=== PATIENT | female | born 1990 | race Caucasian/White ===

== ENCOUNTER 2016-10-30 16:05 | Emergency (ER) | payer OTHER ==
[2016-10-30] MEDS ORDERED: NS 0.9% 1000 ML* 1,000 ML IV ONE (17:01)
[2016-10-30 17:24] LABS: Hematocrit 28 % (35-47); Hemoglobin 8.9 g/dl (12.0-16.0); Mean Corpuscular HGB Conc 32 g/dl (31-36); Mean Corpuscular Hemoglobin 20 pg (27-31); Mean Corpuscular Volume 63 fL (80-97); Mean Platelet Volume 8 um3 (7.4-10.4); Red Blood Count 4.45 10^6/ul (4.0-5.4); Red Cell Distribution Width 16 % (10.5-15); White Blood Count 7.1 10^3/ul (3.5-10.8)
[2016-10-30 17:26] LABS: Add Diff/Slide Review? Slide Review Added; Comments Flag Yes
[2016-10-30 17:35] LABS: Urine Bacteria Absent (Absent); Urine Bilirubin Negative (Negative); Urine Glucose Negative (Negative); Urine Nitrite Negative (Negative)
--- NOTE | 2016-10-30 17:39 | RAD ---
Indication: Bleeding with vaginal delivery. Real-time sonography of the pelvis was performed utilizing transvesical technique. The uterus measures 12.5 x 5.7 x 3.7 cm. Endometrial echo measures 18 mm. The uterus appears to be enlarged consistent with post state. Right ovary measures 2.4 x 1.0 x 3.9 cm. Left ovary measures 2.0 x 1.3 x 2.8 cm. IMPRESSION: Thickened endometrium may be due to fluid and hemorrhage in the endometrial cavity.
[2016-10-30 17:44] LABS: Hypochromasia 1+; Microcytosis 2+
[2016-10-30 17:45] LABS: Add Path Review? YES; Albumin 3.7 g/dL (3.2-5.2); BUN/Creatinine Ratio 20.8 (8-20); Basophilic Stippling 1+; C Reactive Protein 2.7 mg/L (< 5.00); EGFR Non-African American 96.5 (>60); Globulin 2.6 g/dL (2-4); Polychromasia 1+; Potassium 3.7 mmol/L (3.5-5.0); Target Cells 1+; Tear Drop Cells 1+; Total Bilirubin 0.5 mg/dL (0.2-1.0); Total Protein 6.3 g/dL (6.4-8.9)
--- NOTE | 2016-10-30 19:36 | ED ---
Namita Alaniz Emily, scribed for Jerry Del Rio MD on 10/30/16 at 1708 . GI/ HPI - HPI Summary HPI Summary: This patient is a 26 year old F presenting to [facility] accompanied by with a chief complaint of vaginal bleeding that began today. Pt felt lightheadedness and gushing of blood once standing up from car. Patient reports abd pain (3/ 10 in severity). Patient denies CP and SOB. Pt denies having similar bleeding after giving . Pt gave 8 days ago to her 2nd child. Child was born after 41 weeks 2 days (9 days overdue) in a vaginal . Pt reports passing a vaginal blood clot on 10/24/2016. - History of Current Complaint Chief Complaint: EDVaginalBleeding Time Seen by Provider: 10/30/16 16:49 Stated Complaint: BLOOD CLOTS Hx Obtained From: Patient Onset/Duration: Started Hours Ago, Still Present Timing: Constant, Lasting Hours Severity: Moderate Current Severity: Moderate Pain Intensity: 3 Associated Signs and Symptoms: Positive: Other: - Patient reports abd pain (3/ 10 in severity). Patient denies CP and SOB - Allergy/Home Medications Allergies/Adverse Reactions: Allergies Allergy/AdvReac Type Severity Reaction Status Date / Time No Known Allergies Allergy Verified 10/30/16 16:13 PMH/Surg Hx/FS Hx/Imm Hx Sensory History: Denies: Hx Legally Blind EENT History: Denies: Hx Deafness Infectious Disease History: No Infectious Disease History: Denies: Traveled Outside the [place] in Last 30 Days - Family History Known Family History: Negative: Cardiac Disease, Diabetes - Social History Lives: With Family Alcohol Use: None Substance Use Type: Reports: None Smoking Status (MU): Never Smoked Tobacco Review of Systems Negative: Chest Pain Negative: Shortness Of Breath Positive: Abdominal Pain Positive: other - Vaginal bleeding All Other Systems Reviewed And Are Negative: Yes Physical Exam Triage Information Reviewed: Yes Vital Signs On Initial Exam: Initial Vitals Temp Pulse Resp BP Pulse Ox 97.2 F 83 17 134/85 100 10/30/16 16:08 10/30/16 16:08 10/30/16 16:08 10/30/16 16:08 10/30/16 16:08 Vital Signs Reviewed: Yes Appearance: Positive: Well-Appearing, No Pain Distress Skin: Positive: Warm, Skin Color Reflects Adequate Perfusion, Dry Head/Face: Positive: Normal Head/Face Inspection Eyes: Positive: EOMI, HARSHAD ENT: Positive: Normal ENT inspection Neck: Positive: Supple, Nontender Respiratory/Lung Sounds: Positive: Clear to Auscultation, Breath Sounds Present Cardiovascular: Positive: RRR Abdomen Description: Positive: Nontender, Soft Bowel Sounds: Positive: Present Musculoskeletal: Positive: Normal, Strength/ROM Intact Neurological: Positive: Normal, Sensory/Motor Intact, Alert, Oriented to Person Place, Time Psychiatric: Positive: Affect/Mood Appropriate - [place] Coma Scale Coma Scale Total: 15 Diagnostics - Vital Signs Vital Signs Temp Pulse Resp BP Pulse Ox 10/30/16 16:08 97.2 F 83 17 134/85 100 - Laboratory Lab Results: Lab Results 10/30/16 10/30/16 10/30/16 Range/Units 17:10 17:10 17:10 WBC 7.1 (3.5-10.8) 10^3/ul RBC 4.45 (4.0-5.4) 10^6/ul Hgb 8.9 L (12.0-16.0) g/dl Hct 28 L (35-47) % MCV 63 L (80-97) fL MCH 20 L (27-31) pg MCHC 32 (31-36) g/dl RDW 16 H (10.5-15) % Plt Count 347 (150-450) 10^3/ul MPV 8 (7.4-10.4) um3 Neut % (Auto) 67.4 (38-83) % Lymph % (Auto) 24.8 L (25-47) % [place] % (Auto) 5.3 (1-9) % Eos % (Auto) 1.3 (0-6) % Baso % (Auto) 1.2 (0-2) % Absolute Neuts (auto) 4.8 (1.5-7.7) 10^3/ul Absolute Lymphs (auto) 1.8 (1.0-4.8) 10^3/ul Absolute Monos (auto) 0.4 (0-0.8) 10^3/ul Absolute Eos (auto) 0.1 (0-0.6) 10^3/ul Absolute Basos (auto) 0.1 (0-0.2) 10^3/ul Absolute Nucleated RBC 0 10^3/ul Nucleated RBC % 0.1 Normal RBC Morphology Not Reportable Polychromasia 1+ Hypochromasia 1+ Basophilic Stippling 1+ Microcytosis 2+ Target Cells 1+ Tear Drop Cells 1+ Elliptocytes 1+ Hem Pathologist Commnt Pending INR (Anticoag Therapy) 0.85 L (0.89-1.11) APTT 25.9 L (26.0-36.3) seconds Sodium 140 (133-145) mmol/L Potassium 3.7 (3.5-5.0) mmol/L Chloride 108 (101-111) mmol/L Carbon Dioxide 25 (22-32) mmol/L Anion Gap 7 (2-11) mmol/L BUN 15 (6-24) mg/dL Creatinine 0.72 (0.51-0.95) mg/dL Est GFR ( Amer) 124.0 (>60) Est GFR (Non-Af Amer) 96.5 (>60) BUN/Creatinine Ratio 20.8 H (8-20) Glucose 101 H (70-100) mg/dL Lactic Acid (0.5-2.0) mmol/L Calcium 9.0 (8.6-10.3) mg/dL Total Bilirubin 0.50 (0.2-1.0) mg/dL AST 27 (13-39) U/L ALT 65 H (7-52) U/L Alkaline Phosphatase 67 (34-104) U/L C-Reactive Protein 2.70 (< 5.00) mg/L Total Protein 6.3 L (6.4-8.9) g/dL Albumin 3.7 (3.2-5.2) g/dL Globulin 2.6 (2-4) g/dL Albumin/Globulin Ratio 1.4 (1-3) Beta HCG, Quant 277.95 mIU/mL Urine Color Urine Appearance Urine pH (5-9) Ur Specific [place] (1.010-1.030) Urine Protein (Negative) Urine Ketones (Negative) Urine Blood (Negative) Urine Nitrate (Negative) Urine Bilirubin (Negative) Urine Urobilinogen (Negative) Ur Leukocyte Esterase (Negative) Urine WBC (Auto) (Absent) Urine RBC (Auto) (Absent) Urine Bacteria (Absent) Urine Glucose (Negative) 09/16/17 09/16/17 Range/Units 17:10 17:10 WBC (3.5-10.8) 10^3/ul RBC (4.0-5.4) 10^6/ul Hgb (12.0-16.0) g/dl Hct (35-47) % MCV (80-97) fL MCH (27-31) pg MCHC (31-36) g/dl RDW (10.5-15) % Plt Count (150-450) 10^3/ul MPV (7.4-10.4) um3 Neut % (Auto) (38-83) % Lymph % (Auto) (25-47) % [place] % (Auto) (1-9) % Eos % (Auto) (0-6) % Baso % (Auto) (0-2) % Absolute Neuts (auto) (1.5-7.7) 10^3/ul Absolute Lymphs (auto) (1.0-4.8) 10^3/ul Absolute Monos (auto) (0-0.8) 10^3/ul Absolute Eos (auto) (0-0.6) 10^3/ul Absolute Basos (auto) (0-0.2) 10^3/ul Absolute Nucleated RBC 10^3/ul Nucleated RBC % Normal RBC Morphology Polychromasia Hypochromasia Basophilic Stippling Microcytosis Target Cells Tear Drop Cells Elliptocytes Hem Pathologist Commnt INR (Anticoag Therapy) (0.89-1.11) APTT (26.0-36.3) seconds Sodium (133-145) mmol/L Potassium (3.5-5.0) mmol/L Chloride (101-111) mmol/L Carbon Dioxide (22-32) mmol/L Anion Gap (2-11) mmol/L BUN (6-24) mg/dL Creatinine (0.51-0.95) mg/dL Est GFR ( Amer) (>60) Est GFR (Non-Af Amer) (>60) BUN/Creatinine Ratio (8-20) Glucose (70-100) mg/dL Lactic Acid 1.0 (0.5-2.0) mmol/L Calcium (8.6-10.3) mg/dL Total Bilirubin (0.2-1.0) mg/dL AST (13-39) U/L ALT (7-52) U/L Alkaline Phosphatase (34-104) U/L C-Reactive Protein (< 5.00) mg/L Total Protein (6.4-8.9) g/dL Albumin (3.2-5.2) g/dL Globulin (2-4) g/dL Albumin/Globulin Ratio (1-3) Beta HCG, Quant mIU/mL Urine Color Yellow Urine Appearance Clear Urine pH 6.0 (5-9) Ur Specific [place] 1.010 (1.010-1.030) Urine Protein Negative (Negative) Urine Ketones Negative (Negative) Urine Blood 2+ H (Negative) Urine Nitrate Negative (Negative) Urine Bilirubin Negative (Negative) Urine Urobilinogen Negative (Negative) Ur Leukocyte Esterase Negative (Negative) Urine WBC (Auto) Trace(0-5/hpf) (Absent) Urine RBC (Auto) 2+(6-10/hpf) H (Absent) Urine Bacteria Absent (Absent) Urine Glucose Negative (Negative) Result Diagrams: 10/30/16 17:10 10/30/16 17:10 Lab Statement: Any lab studies that have been ordered have been reviewed, and results considered in the medical decision making process. - Additional Comments Diagnostic Additional Comments: A pelvis US read by radiologist reveals thickened endometrium may be due to fluid and hemorrhage in the endometrial cavity. ED physician has reviewed this radiology report and agrees. GIGU Course/Dx - Course Course Of Treatment: BLEEDING DECREASED IN ED. DISCUSSED RESULTS WITH PATIENT/ . DISCUSSED WITH OBGYN, DR LY. VSS, DECREASED BLEEDING, PATIENT WILL F/U WITH HER OBGYN; RETURN TO THE ED IF WORSE OR QUESTIONS/CONCERNS. NO CRITICAL CARE TIME. - Diagnoses Provider Diagnoses: bleeding - Physician Notifications Discussed Care Of Patient With: Ly Ly Time Discussed With Above Provider: 19:19 Instructed by Provider To: Other - Consult with Dr. Ly (Senior Design Engineer) discussed patient's care. She recommends discharge. Discharge - Discharge Plan Condition: Stable Disposition: HOME Patient Education Materials: Bleeding (ED) Referrals: Non Staff,Doctor [Primary Care Provider] - Ly Ly MD [Medical Doctor] - [facility] [Provider Group] Additional Instructions: FOLLOW UP WITH YOUR OBGYN. RETURN TO THE EMERGENCY DEPARTMENT FOR ANY WORSENING OF YOUR CONDITION; EXCESSIVE BLEEDING, YOU FEEL LIGHTHEADED, YOU FEEL ILL, FEVER OR QUESTIONS OR CONCERNS. The documentation as recorded by the Namita wu Emily accurately reflects the service I personally performed and the decisions made by me, Jerry Del Rio MD.
[2016-10-30 19:43] VITALS: BP 130/73
== END 2016-10-30 19:53 | disposition home or self-care (01) ==
LOC: ED 16:05
DX: O72.1 Other immediate postpartum hemorrhage (principal); R10.9 Unspecified abdominal pain
CPT/HCPCS: 36415; 76856; 80053; 81003; 81015; 83605; 84702; 85025; 85060; 85610; 85730; 86140; 99283

== ENCOUNTER 2017-12-06 19:50 | Emergency (ER) | payer OTHER ==
[2017-12-06 21:20] LABS: EGFR Non-African American 91.4 (>60)
[2017-12-06 21:22] LABS: ABS Basophils 0.1 10^3/ul (0-0.2); ABS Eosinophils 0.1 10^3/ul (0-0.6); ABS Monocytes 0.5 10^3/ul (0-0.8); ABS Neutrophils 4.2 10^3/ul (1.5-7.7); ABS Nucleated RBC 0 10^3/ul; Eosinophil % 1.7 % (0-6); Hematocrit 36 % (35-47); Hemoglobin 11.2 g/dl (12.0-16.0); Lymphocyte % 38.4 % (25-47); Mean Corpuscular HGB Conc 31 g/dl (31-36); Mean Corpuscular Hemoglobin 19 pg (27-31); Mean Corpuscular Volume 59 fL (80-97); Nucleated Red Blood Cells % 0.1; Platelet Count 308 10^3/ul (150-450); Red Blood Count 6.03 10^6/ul (4.00-5.40); Red Cell Distribution Width 15 % (10.5-15); White Blood Count 7.9 10^3/ul (3.5-10.8)
[2017-12-06 21:58] LABS: Urine Appearance Clear; Urine Blood 1+ (Negative); Urine Color Straw; Urine Ketones Negative (Negative); Urine Protein Negative (Negative); Urine Red Blood Cell Trace(0-2/hpf) (Absent); Urine Specific Gravity 1.005 (1.010-1.030); Urine Urobilinogen Negative (Negative); Urine White Blood Cell Absent (Absent)
[2017-12-06] MEDS ORDERED: NS 0.9% 1000 ML*IV.FLUID IV ONE (22:45)
[2017-12-07] MEDS ORDERED: Iohexol 300* (CONTRAST) 10 ML SDV IV ONE (00:10)
--- NOTE | 2017-12-07 01:20 | RAD ---
EXAM: CT Abdomen and Pelvis With Intravenous Contrast EXAM DATE/TIME: 12/07/2017 12:14 AM CLINICAL HISTORY: 27 years old, female; Pain; Abdominal pain; Epigastric; Prior surgery; Surgery date: 6+ months; Surgery type: RT inguinal SX; Patient HX: Lt kidney [facility] 2008; Additional info: Epigastric pain TECHNIQUE: Axial computed tomography images of the abdomen and pelvis with intravenous contrast. All CT scans at this facility use at least one of these dose optimization techniques: automated exposure control; mA and/or kV adjustment per patient size (includes targeted exams where dose is matched to clinical indication); or iterative reconstruction. CONTRAST: 72 ml of OMNI 300 administered intravenously. COMPARISON: PELVIC US PELVIC 10/30/2016 5:16 PM FINDINGS: Lower thorax: No acute findings. ABDOMEN: Liver: Normal. No mass. Gallbladder and bile ducts: Normal. No calcified stones. No ductal dilation. Pancreas: Normal. No ductal dilation. Spleen: Normal. No splenomegaly. Adrenals: Normal. No mass. 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 There is compensatory hypertrophy of the right kidney. Stomach and bowel: Normal. No obstruction. No mucosal thickening. Appendix: The appendix is unremarkable as seen best on axial image 44 of series 2. PELVIS: Bladder: Unremarkable as visualized. Reproductive: Unremarkable as visualized. ABDOMEN and PELVIS: Intraperitoneal space: There is trace free fluid in the pelvis, cannot exclude ovarian cyst rupture. Bones/joints: No acute fracture. No dislocation. Soft tissues: Unremarkable. Vasculature: Normal. No abdominal aortic aneurysm. Lymph nodes: Normal. No enlarged lymph nodes. IMPRESSION: 1. There is trace free fluid in the pelvis, cannot exclude ovarian cyst rupture. 2. No other acute CT pathology. To contact [facility] with a general question: Operations Center - [phone] For direct physician to physician contact: Physician Hotline - [phone] [facility] ([facility] Facility ID #[id number])
--- NOTE | 2017-12-07 01:22 | ED ---
GI/ HPI - HPI Summary HPI Summary: 27-year-old female presents with intermittent abdominal pain for the past couple months. She states she was treated for gastritis and H. pylori in august. She states since then she has had intermittently abd pain after she eats she gets this very sharp pain in her epigastric. it Lasts a couple hours.she admit to nausea but no vomiting. no diarrhea or constipation. She was on a course of omeprazole but can not continue due to having only one functioning kidney. She does not take ibuprofen daily. She does not drink Alcohol. Her dietitian told her to come in to evaluate for pancreatitis when has a pain flare. no previous abdominal surgeries. no fevers. - History of Current Complaint Chief Complaint: EDAbdPain Time Seen by Provider: 12/06/17 21:25 Stated Complaint: ABD PAIN Pain Intensity: 8 - Allergy/Home Medications Allergies/Adverse Reactions: Allergies Allergy/AdvReac Type Severity Reaction Status Date / Time No Known Allergies Allergy Verified 12/06/17 19:56 PMH/Surg Hx/FS Hx/Imm Hx Endocrine/Hematology History: Denies: Hx Diabetes Cardiovascular History: Denies: Hx Hypertension History: Denies: Hx Renal Disease Sensory History: Denies: Hx Legally Blind, Hx Deafness Opthamlomology History: Denies: Hx Legally Blind Infectious Disease History: No Infectious Disease History: Denies: Traveled Outside the [place] in Last 30 Days - Family History Known Family History: Negative: Cardiac Disease, Diabetes - Social History Alcohol Use: Occasionally Substance Use Type: Reports: None Smoking Status (MU): Former Smoker Review of Systems Negative: Fever Negative: Chest Pain Negative: Shortness Of Breath Positive: Abdominal Pain, Nausea. Negative: Vomiting, Diarrhea All Other Systems Reviewed And Are Negative: Yes Physical Exam Triage Information Reviewed: Yes Vital Signs On Initial Exam: Initial Vitals Temp Pulse Resp BP Pulse Ox 97.8 F 97 16 134/118 100 12/06/17 19:53 12/06/17 19:53 12/06/17 19:53 12/06/17 19:53 12/06/17 19:53 Vital Signs Reviewed: Yes Appearance: Positive: Well-Appearing Skin: Positive: Warm, Dry Head/Face: Positive: Normal Head/Face Inspection Eyes: Positive: Normal, Conjunctiva Clear ENT: Positive: Pharynx normal Respiratory/Lung Sounds: Positive: Clear to Auscultation, Breath Sounds Present Cardiovascular: Positive: Normal, RRR Abdomen Description: Positive: Soft, Other: - tenderness epigastric Bowel Sounds: Positive: Present Musculoskeletal: Positive: Normal Neurological: Positive: Normal Psychiatric: Positive: Normal Diagnostics - Vital Signs Vital Signs Temp Pulse Resp BP Pulse Ox 12/06/17 22:39 78 124/88 100 12/06/17 19:53 97.8 F 97 16 134/118 100 - Laboratory Lab Results: Lab Results 12/06/17 12/06/17 12/06/17 Range/Units 20:53 20:53 21:45 WBC 7.9 (3.5-10.8) 10^3/ul RBC 6.03 H (4.00-5.40) 10^6/ul Hgb 11.2 L (12.0-16.0) g/dl Hct 36 (35-47) % MCV 59 L (80-97) fL MCH 19 L (27-31) pg MCHC 31 (31-36) g/dl RDW 15 (10.5-15) % Plt Count 308 (150-450) 10^3/ul MPV 9.0 (7.4-10.4) um3 Neut % (Auto) 53.0 (38-83) % Lymph % (Auto) 38.4 (25-47) % [place] % (Auto) 6.0 (0-7) % Eos % (Auto) 1.7 (0-6) % Baso % (Auto) 0.9 (0-2) % Absolute Neuts (auto) 4.2 (1.5-7.7) 10^3/ul Absolute Lymphs (auto) 3.0 (1.0-4.8) 10^3/ul Absolute Monos (auto) 0.5 (0-0.8) 10^3/ul Absolute Eos (auto) 0.1 (0-0.6) 10^3/ul Absolute Basos (auto) 0.1 (0-0.2) 10^3/ul Absolute Nucleated RBC 0 10^3/ul Nucleated RBC % 0.1 Sodium 138 (135-145) mmol/L Potassium 4.1 (3.5-5.0) mmol/L Chloride 103 (101-111) mmol/L Carbon Dioxide 30 (22-32) mmol/L Anion Gap 5 (2-11) mmol/L BUN 16 (6-24) mg/dL Creatinine 0.75 (0.51-0.95) mg/dL Est GFR ( Amer) 110.5 (>60) Est GFR (Non-Af Amer) 91.4 (>60) BUN/Creatinine Ratio 21.3 H (8-20) Glucose 92 (70-100) mg/dL Calcium 10.3 (8.6-10.3) mg/dL Total Bilirubin 0.70 (0.2-1.0) mg/dL AST 16 (13-39) U/L ALT 17 (7-52) U/L Alkaline Phosphatase 50 (34-104) U/L C-Reactive Protein < 1.00 (<8.01) mg/L Total Protein 7.7 (6.4-8.9) g/dL Albumin 4.9 (3.2-5.2) g/dL Globulin 2.8 (2-4) g/dL Albumin/Globulin Ratio 1.8 (1-3) Amylase 52 (29-103) U/L Lipase 50 (11.0-82.0) U/L Beta HCG, Quant < 0.60 mIU/mL Urine Color Straw Urine Appearance Clear Urine pH 7.0 (5-9) Ur Specific [place] 1.005 L (1.010-1.030) Urine Protein Negative (Negative) Urine Ketones Negative (Negative) Urine Blood 1+ A (Negative) Urine Nitrate Negative (Negative) Urine Bilirubin Negative (Negative) Urine Urobilinogen Negative (Negative) Ur Leukocyte Esterase Negative (Negative) Urine WBC (Auto) Absent (Absent) Urine RBC (Auto) Trace(0-2/hpf) (Absent) Urine Bacteria Absent (Absent) Urine Glucose Negative (Negative) Result Diagrams: 12/06/17 20:53 12/06/17 20:53 Lab Statement: Any lab studies that have been ordered have been reviewed, and results considered in the medical decision making process. - CT abd CT Interpretation Completed By: Radiologist Summary of CT Findings: IMPRESSION: 1. There is trace free fluid in the pelvis , cannot exclude ovarian cyst. rupture. 2. No other acute CT pathology. GIGU Course/Dx - Course Course Of Treatment: 27-year-old female presents with intermittent abdominal pain for the past couple months. She states she was treated for gastritis and H. pylori in august. She states since then she has had intermittently abd pain after she eats she gets this very sharp pain in her epigastric. it Lasts a couple hours.she admit to nausea but no vomiting. no diarrhea or constipation. She was on a course of omeprazole but can not continue due to having only one functioning kidney. She does not take ibuprofen daily. She does not drink Alcohol. Her dietitian told her to come in to evaluate for pancreatitis when has a pain flare. On exam tenderness epigastric region. Lipase amylase normal. Discuss with patient and patient is requesting CT to evaluate for pain. CT normal. Discussed should follow back up with GI as have no reason for pain but is nothing surgical or infectious related. Patient understands agrees with plan. - Diagnoses Differential Diagnoses - Female: Esophagitis/Gastritis, Gastritis, Other - pacreatitis Provider Diagnoses: Abdominal pain Discharge - Sign-Out/Discharge Documenting (check all that apply): Patient Departure - Discharge Plan Condition: Good Disposition: HOME Patient Education Materials: Diet for Stomach Ulcers and Gastritis (ED) Referrals: Amira Talley MD [Primary Care Provider] - Additional Instructions: try maalox for symptoms Follow up with GI take tyenlol every 6 hours for pain Return to ED if develop any new or worsening symptoms - Billing Disposition and Condition Condition: GOOD Disposition: Home
[2017-12-07 01:29] VITALS: BP 112/79
== END 2017-12-07 01:33 | disposition home or self-care (01) ==
LOC: ED 19:50
DX: R10.13 Epigastric pain (principal); Z87.891 Personal history of nicotine dependence
CPT/HCPCS: 36415; 74177; 80053; 81003; 81015; 82150; 83690; 84702; 85025; 86140; 96360; 99283; Q9967

== ENCOUNTER 2018-08-17 15:53 | Emergency (ER) | payer OTHER ==
[2018-08-17 16:47] LABS: Urine Appearance Clear; Urine Bilirubin Negative (Negative); Urine Blood Negative (Negative); Urine Color Colorless; Urine Glucose Negative (Negative); Urine Ketones Negative (Negative); Urine Nitrite Negative (Negative); Urine Protein Negative (Negative); Urine Specific Gravity 1.001 (1.010-1.030); Urine Urobilinogen Negative (Negative)
[2018-08-17] MEDS ORDERED: NS 0.9% 1000 ML** 1,000 ML IV ONE (18:07)
[2018-08-17 18:31] LABS: ABS Basophils 0.1 10^3/ul (0-0.2); ABS Eosinophils 0.1 10^3/ul (0-0.6); ABS Lymphocytes 2.4 10^3/ul (1.0-4.8); ABS Monocytes 0.4 10^3/ul (0-0.8); Eosinophil % 1.5 %; Hematocrit 33 % (35-47); Hemoglobin 10.6 g/dL (12.0-16.0); Lymphocyte % 30.1 %; Mean Corpuscular HGB Conc 32 g/dL (31-36); Mean Corpuscular Hemoglobin 19 pg (27-31); Mean Corpuscular Volume 59 fL (80-97); Mean Platelet Volume 8.9 fL (7.4-10.4); Nucleated Red Blood Cells % 0.2; Platelet Count 309 10^3/uL (150-450); Red Blood Count 5.62 10^6 /uL (3.70-4.87); Red Cell Distribution Width 16 % (10-15); White Blood Count 8.1 10^3/uL (3.5-10.8)
[2018-08-17 18:43] LABS: ALT 14 U/L (7-52); AST 14 U/L (13-39); Albumin 4.8 g/dL (3.2-5.2); Albumin/Globulin Ratio 1.8 (1-3); Alkaline Phosphatase 46 U/L (34-104); Anion Gap 7 mmol/L (2-11); BUN/Creatinine Ratio 18.8 (8-20); Blood Urea Nitrogen 13 mg/dL (6-24); C Reactive Protein < 1.00 mg/L (<8.01); CO2 Carbon Dioxide 26 mmol/L (22-32); Calcium 9.8 mg/dL (8.6-10.3); Chloride 107 mmol/L (101-111); EGFR African American 120.9 (>60); EGFR Non-African American 99.9 (>60); Globulin 2.7 g/dL (2-4); Glucose 104 mg/dL (70-100); Potassium 3.9 mmol/L (3.5-5.0); Sodium 140 mmol/L (135-145); Total Protein 7.5 g/dL (6.4-8.9)
[2018-08-17 18:49] LABS: HCG Pregnancy < 0.60 mIU/mL
--- NOTE | 2018-08-17 19:18 | ED ---
Abdominal Pain/Female - HPI Summary HPI Summary: The patient is a 28 y/o F presenting to [facility] with a chief complaint of RLQ pain for the last three days. She reports that the pain has been persistent despite using Tylenol and Motrin to attempt to relieve the pain. The cramping pain is currently rated 4/10 in severity. She additionally c/o nausea without vomiting. She denies fever, diarrhea, and constipation. 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 No surgical hx. Former smoker, no EtOH, no substance use. - History of Current Complaint Chief Complaint: EDAbdPain Stated Complaint: ABD PAIN PER PT Time Seen by Provider: 08/17/18 17:59 Hx Obtained From: Patient Onset/Duration: Sudden Onset, Lasting Days - three, Still Present Timing: Days Severity Initially: Moderate Severity Currently: Moderate Pain Intensity: 4 Pain Scale Used: 0-10 Numeric Location: Discrete At: RLQ Radiates: No Character: Cramping Aggravating Factor(s): Nothing Alleviating Factor(s): Nothing - Tylenol and Motrin to no relief Associated Signs and Symptoms: Positive: Nausea. Negative: Fever, Constipation , Vomiting, Diarrhea Allergies/Adverse Reactions: Allergies Allergy/AdvReac Type Severity Reaction Status Date / Time No Known Allergies Allergy Verified 08/17/18 15:58 PMH/Surg Hx/FS Hx/Imm Hx Endocrine/Hematology History: Denies: Hx Diabetes Cardiovascular History: Denies: Hx Hypercholesterolemia, Hx Hypertension History: Denies: Hx Renal Disease Sensory History: Denies: Hx Legally Blind, Hx Deafness Opthamlomology History: Denies: Hx Legally Blind - Surgical History Surgical History: None Surgery Procedure, Year, and Place: none Infectious Disease History: No Infectious Disease History: Denies: Traveled Outside the [place] in Last 30 Days - Family History Known Family History: Negative: Cardiac Disease, Diabetes - Social History Alcohol Use: Occasionally Hx Substance Use: No Substance Use Type: Reports: None Hx Tobacco Use: Yes Smoking Status (MU): Former Smoker Review of Systems Negative: Fever Positive: Abdominal Pain - RLQ pain, Nausea, Other - NEGATIVE: constipation. Negative: Vomiting, Diarrhea All Other Systems Reviewed And Are Negative: Yes Physical Exam - Summary Physical Exam Summary: VITAL SIGNS: Reviewed. GENERAL: Patient is a well-developed and nourished female who is lying comfortable in the stretcher. Patient is not in any acute respiratory distress. HEAD AND FACE: Normocephalic and atraumatic. EYES: PERRLA, EOMI x 2, No injected conjunctiva. EARS: Hearing grossly intact. Ear canals and tympanic membranes are WNL. MOUTH: Oropharynx within normal limits. NECK: Supple, trachea is midline, no adenopathy, no JVD. CHEST: Symmetric, no tenderness at palpation. LUNGS: Clear to auscultation bilaterally. No wheezing or crackles. CVS: RRR, S1 and S2 present, no murmurs or gallops appreciated. ABDOMEN: Soft, RLQ tenderness. No signs of distention. Positive bowel sounds. No rebound, no guarding, and no masses palpated. No abdominal bruit or pulsations. EXTREMITIES: FROM in all major joints, no edema, no cyanosis or clubbing. NEURO: Alert and oriented x 3. No acute neurological deficits. Speech is normal. SKIN: Dry and warm. Triage Information Reviewed: Yes Vital Signs On Initial Exam: Initial Vitals Temp Pulse Resp BP Pulse Ox 99.8 F 103 14 131/76 99 08/17/18 15:56 08/17/18 15:56 08/17/18 15:56 08/17/18 15:56 08/17/18 15:56 Vital Signs Reviewed: Yes Diagnostics - Vital Signs Vital Signs Temp Pulse Resp BP Pulse Ox 08/17/18 17:51 98.3 F 75 16 112/52 98 08/17/18 15:56 99.8 F 103 14 131/76 99 - Laboratory Lab Results: Lab Results 08/17/18 08/17/18 08/17/18 Range/Units 16:27 18:18 18:18 WBC 8.1 (3.5-10.8) 10^3/uL RBC 5.62 H (3.70-4.87) 10^6 /uL Hgb 10.6 L (12.0-16.0) g/dL Hct 33 L (35-47) % MCV 59 L (80-97) fL MCH 19 L (27-31) pg MCHC 32 (31-36) g/dL RDW 16 H (10-15) % Plt Count 309 (150-450) 10^3/uL MPV 8.9 (7.4-10.4) fL Neut % (Auto) 62.3 % Lymph % (Auto) 30.1 % Ness % (Auto) 5.3 % Eos % (Auto) 1.5 % Baso % (Auto) 0.8 % Absolute Neuts (auto) 5.0 (1.5-7.7) 10^3/ul Absolute Lymphs (auto) 2.4 (1.0-4.8) 10^3/ul Absolute Monos (auto) 0.4 (0-0.8) 10^3/ul Absolute Eos (auto) 0.1 (0-0.6) 10^3/ul Absolute Basos (auto) 0.1 (0-0.2) 10^3/ul Absolute Nucleated RBC 0.0 10^3/ul Nucleated RBC % 0.2 Sodium 140 (135-145) mmol/L Potassium 3.9 (3.5-5.0) mmol/L Chloride 107 (101-111) mmol/L Carbon Dioxide 26 (22-32) mmol/L Anion Gap 7 (2-11) mmol/L BUN 13 (6-24) mg/dL Creatinine 0.69 (0.51-0.95) mg/dL Est GFR ( Amer) 120.9 (>60) Est GFR (Non-Af Amer) 99.9 (>60) BUN/Creatinine Ratio 18.8 (8-20) Glucose 104 H (70-100) mg/dL Lactic Acid (0.5-2.0) mmol/L Calcium 9.8 (8.6-10.3) mg/dL Total Bilirubin 0.70 (0.2-1.0) mg/dL AST 14 (13-39) U/L ALT 14 (7-52) U/L Alkaline Phosphatase 46 (34-104) U/L C-Reactive Protein < 1.00 (<8.01) mg/L Total Protein 7.5 (6.4-8.9) g/dL Albumin 4.8 (3.2-5.2) g/dL Globulin 2.7 (2-4) g/dL Albumin/Globulin Ratio 1.8 (1-3) Lipase 31 (11.0-82.0) U/L Beta HCG, Quant < 0.60 mIU/mL Urine Color Colorless Urine Appearance Clear Urine pH 7.0 (5-9) Ur Specific Freedom 1.001 L (1.010-1.030) Urine Protein Negative (Negative) Urine Ketones Negative (Negative) Urine Blood Negative (Negative) Urine Nitrate Negative (Negative) Urine Bilirubin Negative (Negative) Urine Urobilinogen Negative (Negative) Ur Leukocyte Esterase Negative (Negative) Urine Glucose Negative (Negative) 08/17/18 Range/Units 18:18 WBC (3.5-10.8) 10^3/uL RBC (3.70-4.87) 10^6 /uL Hgb (12.0-16.0) g/dL Hct (35-47) % MCV (80-97) fL MCH (27-31) pg MCHC (31-36) g/dL RDW (10-15) % Plt Count (150-450) 10^3/uL MPV (7.4-10.4) fL Neut % (Auto) % Lymph % (Auto) % Ness % (Auto) % Eos % (Auto) % Baso % (Auto) % Absolute Neuts (auto) (1.5-7.7) 10^3/ul Absolute Lymphs (auto) (1.0-4.8) 10^3/ul Absolute Monos (auto) (0-0.8) 10^3/ul Absolute Eos (auto) (0-0.6) 10^3/ul Absolute Basos (auto) (0-0.2) 10^3/ul Absolute Nucleated RBC 10^3/ul Nucleated RBC % Sodium (135-145) mmol/L Potassium (3.5-5.0) mmol/L Chloride (101-111) mmol/L Carbon Dioxide (22-32) mmol/L Anion Gap (2-11) mmol/L BUN (6-24) mg/dL Creatinine (0.51-0.95) mg/dL Est GFR ( Amer) (>60) Est GFR (Non-Af Amer) (>60) BUN/Creatinine Ratio (8-20) Glucose (70-100) mg/dL Lactic Acid 0.4 L (0.5-2.0) mmol/L Calcium (8.6-10.3) mg/dL Total Bilirubin (0.2-1.0) mg/dL AST (13-39) U/L ALT (7-52) U/L Alkaline Phosphatase (34-104) U/L C-Reactive Protein (<8.01) mg/L Total Protein (6.4-8.9) g/dL Albumin (3.2-5.2) g/dL Globulin (2-4) g/dL Albumin/Globulin Ratio (1-3) Lipase (11.0-82.0) U/L Beta HCG, Quant mIU/mL Urine Color Urine Appearance Urine pH (5-9) Ur Specific Freedom (1.010-1.030) Urine Protein (Negative) Urine Ketones (Negative) Urine Blood (Negative) Urine Nitrate (Negative) Urine Bilirubin (Negative) Urine Urobilinogen (Negative) Ur Leukocyte Esterase (Negative) Urine Glucose (Negative) Result Diagrams: 08/17/18 18:18 08/17/18 18:18 Lab Statement: Any lab studies that have been ordered have been reviewed, and results considered in the medical decision making process. - CT Abd/Pel CT CT Interpretation Completed By: Radiologist Summary of CT Findings: 1. No acute findings. 2. Retrocecal appendix. No appendicitis. 3. Atrophic left kidney containing 2 punctate calcifications and a stable complex cystic lesion at the upper pole, unchanged since prior. ED physician has reviewed this report. Re-Evaluation - Re-Evaluation First Eval Re-Evaluation Time: 21:00 Comment: I discussed results and discharge home with the patient. Abdominal Pain Fem Course/Dx - Course Course Of Treatment: The patient is a 28 y/o F presenting to [facility] with a chief complaint of RLQ pain for the last three days. She reports that the pain has been persistent despite using Tylenol and Motrin to attempt to relieve the pain. The cramping pain is currently rated 4/10 in severity. She additionally c/ o nausea without vomiting. She denies fever, diarrhea, and constipation. 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 No surgical hx. Former smoker, no EtOH, no substance use. Blood work without any significant abnormality except for slight iron deficiency anemia, glucose of 104, beta HCG is negative, and CRP is less than 1. In the ED course, the patient was given IV fluids. The patient requested no IV contrast for the CT scan to rule out an acute appendicitis. Abdominopelvic CT impression: abdominopelvic CT impression: No acute findings. Retrocecal appendix. No appendicitis. Atrophic left kidney continued to point to consider medications and a stable complex cystic lesion at the upper lobe. This is unchanged from previous CT. The patient declined any pain medications at this point. The patient reports that she is feeling better. Since the CT to rule out any acute intra-abdominal pathology and the blood work are within normal limits, the patient will be discharged home with follow-up with PCP. Patient is hemodynamically stable alert and oriented 3. - Diagnoses Provider Diagnoses: RLQ abdominal pain Discharge - Sign-Out/Discharge Documenting (check all that apply): Patient Departure - Patient will be discharged home. Patient Received Moderate/Deep Sedation with Procedure: No - Discharge Plan Condition: Stable Disposition: HOME Prescriptions: HYDROcodone/ACETAMIN 5-325 MG* [Atkinson 5-325 TAB*] 1 tab PO Q6H PRN #10 tab MDD 4 PRN Reason: Pain Patient Education Materials: Acute Abdominal Pain (DC) Referrals: Amira Talley MD [Primary Care Provider] - 3 Days Additional Instructions: Please take medication as prescribed. Follow up with your primary care provider in 2-3 days. RETURN TO THE EMERGENCY DEPARTMENT FOR ANY NEW OR WORSENING SYMPTOMS. - Billing Disposition and Condition Condition: STABLE Disposition: Home - Attestation Statements Document Initiated by Loretta: Yes Documenting Scribe: Lynne Red Provider For Whom Loretta is Documenting (Include Credential): Dr. Jarek Machado MD Scribe Attestation: Lynne Alaniz scribed for Dr. Jarek Machado MD on 08/17/18 at 2136. Scribe Documentation Reviewed: Yes Provider Attestation: The documentation as recorded by the Lynne wu accurately reflects the service I personally performed and the decisions made by me, Dr. Jarek Machado MD Status of Scribe Document: Ready
[2018-08-17] MEDS ORDERED: HYDROcodone/ACETAMIN 5-325 MG* 1 TAB PO ONE (20:56)
[2018-08-17 21:31] VITALS: BP 119/73
== END 2018-08-17 21:28 | disposition home or self-care (01) ==
LOC: ED 15:53
DX: R10.31 Right lower quadrant pain (principal); R11.0 Nausea; Z87.891 Personal history of nicotine dependence
CPT/HCPCS: 36415; 74176; 80053; 81003; 83605; 83690; 84702; 85025; 86140; 96360; 99283

== ENCOUNTER 2019-01-06 20:59 | Emergency (ER) | payer OTHER ==
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
--- OUTSIDE RECORDS SUMMARY | 2019-01-06 21:23 | XMS REPORT | Summary of Care ---
:1990 Author Organization [facility] Address [address] [address] Care Team Providers Name Role Phone DereckAmira loomis Primary Care Provider Reason for Visit Reason Comments Abdominal Pain Nausea Encounter Details Date Type Department Care Team Description 12/31/2018 Emergency [facility] Emergency Department Emergency 1 [place] [phone] Allergies No Known Allergiesdocumented as of this encounter (statuses as of 01/01/2019) Medications No known medicationsdocumented as of this encounter (statuses as of 01/01/2019) Active Problems Problem Noted Date Admission for sterilization 12/16/2017 Overview: Added automatically from request for surgery [id number] documented as of this encounter (statuses as [...] Sign Reading Time Taken Comments Blood Pressure 120/80 12/31/2018 6:26 PM EST Pulse 79 12/31/2018 6:26 PM EST Temperature 36.6 12/31/2018 6:26 PM EST C (97.9 F) Respiratory Rate 18 12/31/2018 6:26 PM EST Oxygen Saturation 100% 12/31/2018 6:26 PM EST Inhaled Oxygen Concentration - - Weight - - Height - - Body Mass Index - - documented in this encounter Plan of Treatment Date Type Specialty Care Team Description 01/16/2019 GI [place] [address] [place] [address] [phone] 06/15/2019 Office Visit Nephrology Lazaro Dewitt MD [address] [place] [place] [address] Health Maintenance Due Date Last Done [...] of this encounter Implants Implanted Type Area Director Of Purchasing Device Shelf Model / Identifier Expiration Serial / Date Lot Matos N/A: Esophagus / Implanted: Qty: 1 on 06/27/2018 by Chai Cui DO at [facility] [id number] / documented as of this encounter Results Not on filedocumented in this encounter Insurance Payer Benefit Plan / Subscriber ID Effective Dates Phone Address Type Group [employer] COMMERCIAL AETNA [place] PHL xxxxxxxxxx 2015-Present Aetna Guarantor Name Account Type Relation to Date of Phone Billing Patient Address Anupama Mckay Personal/Family 1990 [address] [phone] [place], [place] (Work) [address] documented as of this encounter
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
[2019-01-06 21:44] LABS: ABS Basophils 0.1 10^3/ul (0-0.2); ABS Eosinophils 0.2 10^3/ul (0-0.6); ABS Lymphocytes 3.1 10^3/ul (1.0-4.8); ABS Monocytes 0.4 10^3/ul (0-0.8); Hematocrit 32 % (35-47); Hemoglobin 10.3 g/dL (12.0-16.0); Lymphocyte % 35.4 %; Mean Corpuscular HGB Conc 32 g/dL (31-36); Mean Corpuscular Hemoglobin 19 pg (27-31); Mean Corpuscular Volume 58 fL (80-97); Platelet Count 295 10^3/uL (150-450); Red Blood Count 5.41 10^6 /uL (3.70-4.87); Red Cell Distribution Width 16 % (10-15); White Blood Count 8.8 10^3/uL (3.5-10.8)
[2019-01-06 21:45] LABS: INR 1.08 (0.82-1.09)
[2019-01-06 22:07] LABS: Albumin 4.8 g/dL (3.2-5.2); Calcium 10.3 mg/dL (8.6-10.3); Potassium 3.6 mmol/L (3.5-5.0); Total Bilirubin 0.6 mg/dL (0.2-1.0)
[2019-01-06 22:13] LABS: Albumin/Globulin Ratio 1.9 (1-3); BUN/Creatinine Ratio 23.3 (8-20); EGFR African American 113.3 (>60); EGFR Non-African American 93.6 (>60); Globulin 2.5 g/dL (2-4); Total Protein 7.3 g/dL (6.4-8.9)
--- NOTE | 2019-01-06 22:26 | ED ---
HPI Chest Pain - HPI Summary HPI Summary: Complains of intermittent right lateral chest/right anterior shoulder pain 2 days. Pain is intermittent, precipitated by movement, lasts for seconds at a time. Worse with bending over and lifting. Denies prior history of same pain. Denies decrease in endurance or symptoms related to exertion. Does admit to increased stress recently. Denies fever, cough, sore throat, SOB, N/3/D, abdominal pain, change in urine, change in BM. Denies OCP, estrogen supplements , history of cancer, history of , unilateral leg pain, history of blood clots, recent surgery or trauma, recent long travel. - History of Current Complaint Chief Complaint: EDChestWallPain Time Seen by Provider: 01/06/19 22:11 Hx Obtained From: Patient, Family/Cleaning Associate Onset/Duration: Started Days Ago Timing: Intermittent, Lasting Seconds Initial Severity: Moderate Current Severity: Moderate Pain Intensity: 5 Pain Scale Used: 0-10 Numeric Chest Pain Location: Right Lateral Chest Pain Radiates: Yes Chest Pain Radiates To:: Shoulder Character: Sharp/Stabbing Aggravating Factor(s): Movement Alleviating Factor(s): Position Associated Signs and Symptoms: Positive: Chest Pain - Allergy/Home Medications Allergies/Adverse Reactions: Allergies Allergy/AdvReac Type Severity Reaction Status Date / Time No Known Allergies Allergy Verified 08/17/18 15:58 Home Medications: Home Medications Amitriptyline TAB* [Elavil TAB*] 5 mg PO BEDTIME 01/06/19 [History Confirmed ] PMH/Surg Hx/FS Hx/Imm Hx Endocrine/Hematology History: Denies: Hx Diabetes Cardiovascular History: Denies: Hx Hypercholesterolemia, Hx Hypertension History: Denies: Hx Renal Disease Sensory History: Denies: Hx Legally Blind, Hx Deafness Opthamlomology History: Denies: Hx Legally Blind EENT History: Denies: Hx Deafness - Surgical History Surgery Procedure, Year, and Place: none Infectious Disease History: No Infectious Disease History: Denies: Traveled Outside the [place] in Last 30 Days - Family History Known Family History: Negative: Cardiac Disease, Diabetes - Social History Alcohol Use: Occasionally Hx Substance Use: No Substance Use Type: Reports: None Hx Tobacco Use: Yes Smoking Status (MU): Light Every Day Tobacco Smoker Review of Systems Constitutional: Negative Eyes: Negative ENT: Negative Positive: Chest Pain Respiratory: Negative Gastrointestinal: Negative Genitourinary: Negative Musculoskeletal: Negative Skin: Negative Neurological: Negative Psychological: Normal All Other Systems Reviewed And Are Negative: Yes Physical Exam - Summary Physical Exam Summary: Chest pain is located just medial to right anterior shoulder. Nontender to palpation. Some tenderness with contraction of pectoral muscles. Lung sounds clear to auscultation bilaterally. Triage Information Reviewed: Yes Vital Signs On Initial Exam: Initial Vitals Temp Pulse Resp BP Pulse Ox 98.3 F 87 16 119/77 99 01/06/19 21:07 01/06/19 21:07 01/06/19 21:07 01/06/19 21:07 01/06/19 21:07 Vital Signs Reviewed: Yes Appearance: Positive: Well-Appearing Skin: Positive: Warm Head/Face: Positive: Normal Head/Face Inspection Eyes: Positive: Normal Neck: Positive: Supple Respiratory/Lung Sounds: Positive: Clear to Auscultation Cardiovascular: Positive: Normal Abdomen Description: Positive: Nontender Musculoskeletal: Positive: Normal Neurological: Positive: Normal Psychiatric: Positive: Normal AVPU Assessment: Alert - Niki Coma Scale Best Eye Response: 4 - Spontaneous Best Motor Response: 6 - Obeys Commands Best Verbal Response: 5 - Oriented Coma Scale Total: 15 Procedures - Sedation Patient Received Moderate/Deep Sedation with Procedure: No Diagnostics - Vital Signs Vital Signs Temp Pulse Resp BP Pulse Ox 01/06/19 22:08 73 26 117/73 97 01/06/19 22:07 78 22 95 01/06/19 21:07 98.3 F 87 16 119/77 99 - Laboratory Lab Results: Lab Results 01/06/19 01/06/19 01/06/19 Range/Units 21:32 21:32 21:32 WBC 8.8 (3.5-10.8) 10^3/uL RBC 5.41 H (3.70-4.87) 10^6 /uL Hgb 10.3 L (12.0-16.0) g/dL Hct 32 L (35-47) % MCV 58 L (80-97) fL MCH 19 L (27-31) pg MCHC 32 (31-36) g/dL RDW 16 H (10-15) % Plt Count 295 (150-450) 10^3/uL MPV 9.0 (7.4-10.4) fL Neut % (Auto) 56.8 % Lymph % (Auto) 35.4 % Mcpherson % (Auto) 4.9 % Eos % (Auto) 2.0 % Baso % (Auto) 0.9 % Absolute Neuts (auto) 5.0 (1.5-7.7) 10^3/ul Absolute Lymphs (auto) 3.1 (1.0-4.8) 10^3/ul Absolute Monos (auto) 0.4 (0-0.8) 10^3/ul Absolute Eos (auto) 0.2 (0-0.6) 10^3/ul Absolute Basos (auto) 0.1 (0-0.2) 10^3/ul Absolute Nucleated RBC 0.0 10^3/ul Nucleated RBC % 0.0 INR (Anticoag Therapy) 1.08 (0.82-1.09) Sodium 136 (135-145) mmol/L Potassium 3.6 (3.5-5.0) mmol/L Chloride 103 (101-111) mmol/L Carbon Dioxide 27 (22-32) mmol/L Anion Gap 6 (2-11) mmol/L BUN 17 (6-24) mg/dL Creatinine 0.73 (0.51-0.95) mg/dL Est GFR ( Amer) 113.3 (>60) Est GFR (Non-Af Amer) 93.6 (>60) BUN/Creatinine Ratio 23.3 H (8-20) Glucose 108 H (70-100) mg/dL Calcium 10.3 (8.6-10.3) mg/dL Total Bilirubin 0.60 (0.2-1.0) mg/dL AST 11 L (13-39) U/L ALT 9 (7-52) U/L Alkaline Phosphatase 39 (34-104) U/L Troponin I 0.00 (<0.03) ng/mL Total Protein 7.3 (6.4-8.9) g/dL Albumin 4.8 (3.2-5.2) g/dL Globulin 2.5 (2-4) g/dL Albumin/Globulin Ratio 1.9 (1-3) Result Diagrams: 01/06/19 21:32 01/06/19 21:32 Lab Statement: Any lab studies that have been ordered have been reviewed, and results considered in the medical decision making process. Chest Pain Course/Dx - Course Course Of Treatment: Complains of intermittent right lateral chest/right anterior shoulder pain 2 days. Pain is intermittent, precipitated by movement , lasts for seconds at a time. Worse with bending over and lifting. Denies prior history of same pain. Denies decrease in endurance or symptoms related to exertion. Does admit to increased stress recently. Denies fever, cough, sore throat, SOB, N/3/D, abdominal pain, change in urine, change in BM. Denies OCP, estrogen supplements, history of cancer, history of , unilateral leg pain, history of blood clots, recent surgery or trauma, recent long travel. Vital signs within normal limits. Hemoglobin 10.3 patient baseline. Labs otherwise unremarkable. EKG sinus rhythm, heart rate of 78, no prior on file. - Diagnoses Provider Diagnoses: Atypical chest pain Discharge ED - Sign-Out/Discharge Documenting (check all that apply): Patient Departure - Discharge Plan Condition: Stable Disposition: HOME Patient Education Materials: Chest Pain (ED), Chest Wall Pain (ED) Referrals: Amira Talley MD [Primary Care Provider] - Additional Instructions: Alternate ibuprofen and Tylenol for chest wall pain. Try breathing exercises to relax yourself self in stressful times. Follow-up with primary care. - Billing Disposition and Condition Condition: STABLE Disposition: Home
[2019-01-06 23:37] VITALS: BP 123/78
== END 2019-01-06 23:30 | disposition home or self-care (01) ==
LOC: ED 20:59
DX: R07.89 Other chest pain (principal); F17.210 Nicotine dependence, cigarettes, uncomplicated; Z79.899 Other long term (current) drug therapy
CPT/HCPCS: 36415; 80053; 84484; 85025; 85610; 93005; 99283